=== PATIENT | male | born 1950 | race Caucasian/White ===

== ENCOUNTER 2016-09-26 19:04 | Emergency (ER) | payer MEDICARE, OTHER ==
[~2016-09-26 19:04] MED LIST: ASPIR 8181 MG PO; ASPIRIN81 M1 PO; ATENOLOL50 MG; BENTYL20 MG PO; LISINOPRIL20 MG; LORTAB ELIXIR480 ML PO; MEVACOR40 MG; SIMVASTATIN40 MG PO; ZESTRIL40 M1 PO
== END 2016-09-26 20:30 ==
LOC: EDMED 19:04
DX: S40.012A Contusion of left shoulder, initial encounter (principal); S80.212A Abrasion, left knee, initial encounter; I10 Essential (primary) hypertension; Z79.82 Long term (current) use of aspirin; F17.200 Nicotine dependence, unspecified, uncomplicated; V18.4XXA Pedal cycle driver injured in noncollision transport accident in traffic accident, initial encounter; Y93.55 Activity, bike riding; Y92.410 Unspecified street and highway as the place of occurrence of the external cause; Y99.8 Other external cause status